=== PATIENT | male | born 1960 | race Caucasian/White ===

== ENCOUNTER → 2017-06-18 | Outpatient (CLI) | payer BC ==
--- NOTE | 2017-06-18 09:37 | RADIOLOGY REPORT (SQ) ---
EXAM DESCRIPTION: CT ABD/PELVIS ORAL ONLY COMPLETED DATE/TIME: 06/18/2017 9:09 am REASON FOR STUDY: ABD PAIN (R10.9), PELVIC AND PERINEAL PAIN (R10.2) R10.9 UNSPECIFIED ABDOMINAL PA IN R10.2 PELVIC AND PERINEAL PAIN COMPARISON: None. TECHNIQUE: CT scan of the abdomen and pelvis performed with oral contrast and no intravenous contras t. Images reviewed with lung, soft tissue, and bone windows. Reconstructed coronal and sagittal MPR i mages reviewed. All images stored on PACS. All CT scanners at this facility use dose modulation, iterative reconstruction, and/or weight based d osing when appropriate to reduce radiation dose to as low as reasonably achievable (ALARA). [facility]: Dose Right [facility]: CareDose [facility]: Dose Right [facility]: Teradose 4D [facility]: Smart [employer] RADIATION DOSE: CT Rad equipment meets quality standard of care and radiation dose reduction techniq ues were employed. CTDIvol: 17.7 mGy. DLP: 978 mGy-cm.mGy. LIMITATIONS: None. FINDINGS: LOWER CHEST: No abnormality seen. NON-CONTRASTED LIVER, SPLEEN, ADRENALS: No abnormality of the liver. No abnormality of the right and left adrenal. Splenic granulomata. PANCREAS: No abnormality seen. GALLBLADDER: Status post cholecystectomy. RIGHT KIDNEY AND URETER: Status post right nephrectomy. Surgical clips in right renal fossa. LEFT KIDNEY AND URETER: No abnormality seen. AORTA AND RETROPERITONEUM: No aneurysm. No retroperitoneal masses or adenopathy. BOWEL AND PERITONEAL CAVITY: Colonic diverticulosis. Umbilical hernia containing fat. APPENDIX: Normal. PELVIS, BLADDER, AND ABDOMINAL WALL: Normal urinary bladder. Normal prostate and seminal vesicles. BONES: Thoracic and lumbar spondylosis. There is relative narrowing of the spinal canal noted at the T9-T10 level with broad-based circumferential bulging disc and osteophyte formation. Circumferentia l bulging disc L1-L5. IMPRESSION: 1. Status post right nephrectomy. Colonic diverticulosis. Otherwise, no significant a bnormality seen. TECHNICAL DOCUMENTATION: JOB ID: [id number] [id number] Quality ID # [id number]: Final reports with documentation of one or more dose reduction techniques (e.g., Au tomated exposure control, adjustment of the mA and/or kV according to patient size, use of iterative reconstruction technique) 2010 [employer]- All Rights Reserved
== END ==
LOC: RAD 08:37
PROVIDERS: ATTEND Internal Medicine
DX: R10.2 Pelvic and perineal pain (principal); R10.9 Unspecified abdominal pain; K57.30 Diverticulosis of large intestine without perforation or abscess without bleeding; Z90.5 Acquired absence of kidney
CPT/HCPCS: 74176